=== PATIENT | male | born 1950 | race Caucasian/White ===

== ENCOUNTER 2022-09-25 09:44 | Outpatient (CLI) | payer MEDICARE, SELFPAY | END 2022-09-25 09:45 | disposition home or self-care (01) | LOC: INJ CL 09:47 | PROVIDERS: PCP Family Medicine; Visit Provider Family Medicine | DX: M17.11 Unilateral primary osteoarthritis, right knee (principal); M25.561 Pain in right knee | CPT/HCPCS: 64454 ==

== ENCOUNTER 2025-04-20 12:26 | Outpatient (CLI) | payer MEDICARE, SELFPAY | END 2025-04-20 12:27 | disposition home or self-care (01) | LOC: INJ CL 12:26 | PROVIDERS: PCP Family Medicine; Visit Provider Family Medicine | DX: M17.31 Unilateral post-traumatic osteoarthritis, right knee (principal); M25.561 Pain in right knee | CPT/HCPCS: 64454 ==

== ENCOUNTER 2025-05-11 13:11 | Outpatient (CLI) | payer MEDICARE, SELFPAY | END 2025-05-11 13:12 | disposition home or self-care (01) | LOC: INJ CL 13:13 | PROVIDERS: PCP Family Medicine; Visit Provider Family Medicine | DX: M17.31 Unilateral post-traumatic osteoarthritis, right knee (principal); M25.561 Pain in right knee; G89.29 Other chronic pain | CPT/HCPCS: 64624; J2250; J3010 ==